=== PATIENT | male | born 1960 | race Caucasian/White ===

== ENCOUNTER 2019-11-14 09:27 | Emergency (ER) | payer OTHER, SELFPAY ==
--- NOTE | ~2019-11-14 | XR_ITS ---
EXAMINATION: XR shoulder RT min 2V DATE: 11/14/2019 10:35 INDICATION: Right shoulder pain and limited range of motion post fall TECHNIQUE: AP internally and externally rotated, AP oblique externally rotated and transscapular Y vi ews of the right shoulder were obtained. COMPARISON: Chest CT dated 06/11/2016 FINDINGS: Normal alignment. No fracture.Mild glenohumeral and acromioclavicular osteoarthritis. Chronic mild c ystic change along the greater tuberosity with subtle amorphous calcification at the insertion of the distal supraspinatus tendon consistent with calcific tendinitis. Soft tissues are otherwise unremark able. Visualized portions of the lungs are clear. Moderate to severe lower cervical spondylosis. IMPRESSION: 1. Mild right glenohumeral and acromioclavicular osteoarthritis No acute osseous abnormality. 2. Chronic supraspinatus calcific tendinitis. Reviewed, dictated and finalized at location A. IMPRESSION: 1. Mild right glenohumeral and acromioclavicular osteoarthritis No acute osseou s abnormality. 2. Chronic supraspinatus calcific tendinitis.
[2019-11-14 09:30] VITALS: BP 180/97; PULSE 95; RESP 17; TEMP 36.2; O2SAT 96
[2019-11-14] MEDS: diazePAM 5 MG TABLET PO (10:36)
--- NOTE | 2019-11-14 11:32 | ED.GENADULT ---
HPI - General Adult General Chief complaint: Extremity Injury, Upper <HATTIE Cox Last Filed: 11/14/19 11:37> Stated complaint: Right Shoulder Pain <HATTIE Cox Last Filed: 11/14/19 11:37> Time Seen by Provider: 11/14/19 10:09 <HATTIE Cox Last Filed: 11/14/19 11:37> Source: patient <HATTIE Cox Last Filed: 11/14/19 11:37> Mode of arrival: ambulatory <HATTIE Cox Last Filed: 11/14/19 11:37> Limitations: no limitations <HATTIE Cox Last Filed: 11/14/19 11:37> History of Present Illness HPI narrative: Patient is a 59-year-old male who presents with right shoulder pain after tripping over his dog and having a shoulder strike his car patient notes aching pain of the shoulder joint worse with activity and movement. Patient denies other injuries or complaints. Patient notes that has been difficult to raise his arm he had improvement the next day and went to work and after working the pain worsened again. Patient has been taking his home pain medications with some improvement but continues to have pain with any activity of the shoulder joint <HATTIE Cox Last Filed: 11/14/19 11:37> Related Data Home medications: Home Medications Medication Instructions Recorded Confirmed albuterol sulfate 90 mcg/actuation 2 puff INHALATION Q4H PRN gm 04/10/19 08/30/19 aerosol inhaler cyclobenzaprine 10 mg tablet 10 mg PO TID 04/10/19 08/30/19 lorazepam 0.5 mg tablet 0.5 mg PO .hs PRN tablet 04/10/19 08/30/19 <HATTIE Cox Last Filed: 11/14/19 11:37> Allergies/adverse reactions: Allergies Allergy/AdvReac Type Severity Reaction Status Date / Time No Known Allergies Allergy Verified 11/14/19 09:33 <HATTIE Cox Last Filed: 11/14/19 11:37> Review of Systems Review of Systems: All systems reviewed & are unremarkable except as noted in HPI and below <HATTIE Cox Last Filed: 11/14/19 11:37> PMF Past Medical History Medical History: Medical History Vasomotor rhinitis <Willem Gonsalez PA-C - Last Filed: 11/14/19 11:37> Social History Social History: Social History Smoking status: Heavy tobacco smoker Alcohol intake: never Gender identity (if verbalized by the patient): Male <Willem Gonsalez PA-C - Last Filed: 11/14/19 11:37> Exam Narrative: Exam Narrative: GENERAL: Well-appearing, well-nourished, and in no acute distress. HEAD: Normocephalic, atraumatic. EYES: PERRLA and EOMI. EXTREMITIES: Patient with tenderness to palpation of the right rotator cuff musculature no deformity noted. No midline cervical tenderness to palpation. Remainder of right upper extremity nontender no deformity SKIN: Warm, dry, no rash. NEURO: No focal deficits. Alert and oriented x3. Neurovascularly intact. Cranial nerves II through XII grossly intact. Capillary refill less than 2 seconds PSYCH: Normal mood and affect. <HATTIE Cox Last Filed: 11/14/19 11:37> Course Course Emergency Course: Patient in the room in no distress aware of case findings treatment plan and diagnosis agreeing to follow-up as direct <Willem Gonsalez PA-C - Last Filed: 11/14/19 11:37> Vital Signs Vital signs: Vital Signs Temperature 97.1 F L 11/14/19 09:30 Pulse Rate 95 11/14/19 09:30 Respiratory Rate 17 11/14/19 09:30 Blood Pressure 180/97 H 11/14/19 09:30 Pulse Oximetry 96 11/14/19 09:30 Temperature 97.1 F L 11/14/19 09:30 Pulse Rate 95 11/14/19 09:30 Respiratory Rate 17 11/14/19 09:30 Blood Pressure 180/97 H 11/14/19 09:30 Pulse Oximetry 96 11/14/19 09:30 <HATTIE Cox Last Filed: 11/14/19 11:37> Vital Signs Temperature 97.1 F L 11/14/19 09:30 Pulse Rate 95 11/14/19
== END 2019-11-14 11:58 | disposition home or self-care (01) ==
PROVIDERS: Emergency Provider General Practice; PCP Internal Medicine
DX: S49.91XA Unspecified injury of right shoulder and upper arm, initial encounter (principal); F17.210 Nicotine dependence, cigarettes, uncomplicated; W01.0XXA Fall on same level from slipping, tripping and stumbling without subsequent striking against object, initial encounter
CPT/HCPCS: 73030; 99283; A9270

== ENCOUNTER → 2021-09-15 15:46 | Outpatient (CLI) | payer OTHER, SELFPAY ==
--- NOTE | ~2021-09-15 | CT_ITS ---
EXAMINATION: CT lung screening DATE: 09/15/2021 16:00 INDICATION: Screening TECHNIQUE: Computed tomography (CT) of the chest was performed without intravenous contrast. The dose -length product was 114.61 mGy-cm. Automated exposure control and iterative reconstruction technique were employed. COMPARISON: CT dated 06/11/2016 FINDINGS: Heart size normal. No significant pleural or pericardial effusion. There is mild atheroscle rosis. No lymphadenopathy. Upper abdomen is unremarkable. No endobronchial lesions. Mild scarring at the lung apices. Mild emphysema. Severe thoracic spondylosis with mild chronic loss of vertebral body height at multiple thoracic levels. There has been resolution of 3 mm right upper lobe nodule. There is a 3 mm left lower lobe nodule. IMPRESSION: 1. Lung-RADS category 2: Benign appearance or behavior. Continue annual screening with noncontrast lo w-dose chest CT in 12 months. Reviewed, dictated and finalized at location A. IMPRESSION: 1. Lung-RADS category 2: Benign appearance or behavior. Continue annual screeni ng with noncontrast low-dose chest CT in 12 months.
== END ==
PROVIDERS: PCP Family Medicine; Visit Provider Family Medicine
DX: Z12.2 Encounter for screening for malignant neoplasm of respiratory organs (principal); F17.210 Nicotine dependence, cigarettes, uncomplicated
CPT/HCPCS: 71271

== ENCOUNTER → 2021-09-26 11:25 | Outpatient (CLI) | payer OTHER, SELFPAY ==
--- NOTE | ~2021-09-26 | XR_ITS ---
[id number] 09/26/2021 11:43 Indication: Neck pain. Procedure: 4 view cervical spine Comparison: No prior studies for comparison. Findings: Lung apices are normal. Odontoid process is normal. No prevertebral soft tissue swelling. T here is advanced multilevel uncinate and facet hypertrophy. Lung apices are unremarkable. No preverte bral soft tissue swelling. No acute fracture. Impression: 1: Moderate cervical spondylosis. Reviewed, dictated and finalized at location A. Impression: 1: Moderate cervical spondylosis.
== END ==
PROVIDERS: PCP Family Medicine; Visit Provider Family Medicine
DX: M47.892 Other spondylosis, cervical region (principal)
CPT/HCPCS: 72040

== ENCOUNTER → 2021-10-10 10:00 | Outpatient (CLI) | payer OTHER, SELFPAY ==
--- NOTE | ~2021-10-10 | MR_ITS ---
EXAMINATION: MR cervical spine wo con DATE: 10/10/2021 10:39 INDICATION: Radicular symptoms, neck pain, bilateral arm numbness and tingling. No trauma. TECHNIQUE: Magnetic resonance imaging (MRI) of the cervical spine was performed without intravenous c ontrast. Sequences included sagittal T2-weighted FSE, sagittal T2-weighted FS FSE, sagittal T1-weight ed FSE, axial MERGE, and axial T2-weighted FSE. COMPARISON: X-ray C-spine 09/26/2021. MR C-spine 12/08/2013. FINDINGS: Craniocervical association and atlantoaxial joint are intact, with moderate degenerative ch anabel. Small C6 vertebral body hemangioma. Reversal of the cervical lordosis. Vertebral body heights a re maintained. Multilevel disc height loss and dehydration. Congenitally narrow cervical canal. Sugge stion of minimal, early cord edema at C5 and C6. Normal cervical medullary junction. The following di sc levels are specifically discussed: C2-C3: The disc does not extend beyond the endplate margin. There is moderate left uncovertebral join t osteoarthritis. There is moderate left and mild right facet joint osteoarthritis. There is severe r ight neural foraminal stenosis. There is mild central canal stenosis. C3-C4: The disc does not extend beyond the endplate margin. There is mild bilateral uncovertebral yasmeen nt osteoarthritis. There is severe right and mild left facet joint osteoarthritis. There is severe ri ght and moderate left neural foraminal stenosis. There is mild central canal stenosis. C4-C5: Mild diffuse bulge. There is moderate bilateral uncovertebral joint osteoarthritis. There is m ild bilateral facet joint osteoarthritis. There is severe bilateral neural foraminal stenosis. There is moderate central canal stenosis. C5-C6: Mild diffuse bulge. There is moderate bilateral uncovertebral joint osteoarthritis. There is m oderate bilateral facet joint osteoarthritis. There is severe bilateral neural foraminal stenosis. Th ere is severe central canal stenosis. C6-C7: Moderate diffuse bulge with a 4 mm extrusion extending superiorly along the posterior margin o f C6. There is moderate bilateral uncovertebral joint osteoarthritis. There is moderate bilateral fac et joint osteoarthritis. There is severe bilateral neural foraminal stenosis. There is severe central canal stenosis. C7-T1: The disc does not extend beyond the endplate margin. There is mild bilateral uncovertebral yasmeen nt osteoarthritis. There is moderate bilateral facet joint osteoarthritis. There is no neural foramin al stenosis. There is no central canal stenosis. IMPRESSION: 1. Severe central canal stenosis at C5-6 and C6-7, secondary to degenerative disc , facet, and uncove rtebral joint change, as well as congenital canal narrowing, with corresponding trace cord edema donald a at the same levels. 2. Multilevel severe neural foraminal narrowing, described above. 3. 4 mm C6-7 central disc extrusion extending superiorly along the posterior cortex of C6. Reviewed, dictated and finalized at location K. IMPRESSION: 1. Severe central canal stenosis at C5-6 and C6-7, secondary to degenerative di sc , facet, and uncovertebral joint change, as well as congenital canal narrowi ng, with corresponding trace cord edema edema at the same levels. 2. Multilevel severe neural foraminal narrowing, described above. 3. 4 mm C6-7 central disc extrusion extending superiorly along the posterior co rtex of C6.
== END ==
PROVIDERS: PCP Family Medicine; Visit Provider Family Medicine
DX: M54.12 Radiculopathy, cervical region (principal); M50.20 Other cervical disc displacement, unspecified cervical region
CPT/HCPCS: 72141